=== PATIENT | female | born 1970 | race African-American/Black ===

== ENCOUNTER → 2017-11-23 | Outpatient (CLI) | payer OTHER | LOC: RAD 13:17 | DX: Z12.31 Encounter for screening mammogram for malignant neoplasm of breast (principal) ==

== ENCOUNTER → 2018-06-26 | Outpatient (CLI) | payer OTHER | LOC: CAT 12:13 | DX: Z13.6 Encounter for screening for cardiovascular disorders (principal); E78.00 Pure hypercholesterolemia, unspecified; I25.10 Atherosclerotic heart disease of native coronary artery without angina pectoris ==

== ENCOUNTER → 2018-12-11 | Outpatient (CLI) | payer OTHER | LOC: RAD 07:44 | DX: M54.5 Low back pain (principal) ==

== ENCOUNTER → 2018-12-20 | Outpatient (CLI) | payer OTHER | LOC: RAD 12:36 → MRI 12:36 | DX: Z12.31 Encounter for screening mammogram for malignant neoplasm of breast (principal); M47.26 Other spondylosis with radiculopathy, lumbar region; M51.16 Intervertebral disc disorders with radiculopathy, lumbar region; M41.86 Other forms of scoliosis, lumbar region; M51.37 Other intervertebral disc degeneration, lumbosacral region; M47.27 Other spondylosis with radiculopathy, lumbosacral region ==

== ENCOUNTER → 2019-01-14 | Outpatient (CLI) | payer OTHER ==
[~2019-01-14] MED LIST: GABAPENTIN 100100 MG PO; LEXAPRO 10 MG T10 M1 PO; TIZANIDINE4 MG/1 TA1 PO; TRAMADOL 50 MG50 MG PO
== END ==
LOC: CAT 10:36
DX: M47.26 Other spondylosis with radiculopathy, lumbar region (principal); M43.8X6 Other specified deforming dorsopathies, lumbar region; N28.1 Cyst of kidney, acquired

== ENCOUNTER 2019-02-04 12:40 | Emergency (ER) | payer OTHER ==
[~2019-02-04] VITALS: Ht 172.7 cm; Wt 131.5 kg
--- NOTE | ~2019-02-04 | EMS ---
[facility] [address] [place] [address] EMS Patient Care Report Name: CAITLYN DAVILA Room #: REG Val#: [id number] Admission: 02/04/19 Attend Phys: Discharge: Date of : 70 Report #: [id number] THIS REPORT FOR: //name// Report Transmitted: 02/04/2019 13:15 EMS Care Summary [facility] MED-ACT Incident [id number] @ 02/04/2019 12:14 Incident Location [address] [place] [address] Patient CAITLYN DAVILA Female, 48 Years 1970 Patient Address [address] [place] [id number] Patient History None Reported, Patient Allergies No known allergies, Chief Complaint I feel dizzy Disposition Transported No Lights/[place] Dis[place] Reason Unconscious/Fainting Transported To [facility] Narrative Patient reports she was at work when she began to c/o dizziness and her heart racing. Patient advised this started around 0900 hours. Patient called her doctor and left work to go to his office around 1200 hours. While driving, patient advised the dizziness was getting worse so she pulled over into a parking lot and called 911. [facility] [address] [place] [address] EMS Patient Care Report Name: CAITLYN DAVILA Room #: REG ABDOULAYE Neal#: [id number] Admission: 02/04/19 Attend Phys: Discharge: Date of : 70 Report #: [id number] On arrival found patient sitting in the drivers seat c/o dizziness and that her heart was racing. Patient walked to EMS unit without difficulty. Patient denied any chest pain, dyspnea, N/V, recent illness or injury. Initial Vitals @12:26P: 95,R: 20,BP: 174/98,SpO2: 99,OK Suspected: false @12:32P: 96,R: 20,BP: 165/71,SpO2: 94, @12:22P: 107,R: 20,BP: 170/110,Pain: 0/10,GCS: 15,SpO2: 93,Revised Trauma: 12, Assessments @12:22MENTAL:Person Oriented,Time Oriented,Place Oriented,Event Oriented,SKIN:HEENT:LUNG SOUNDS:General: No Abnormalities,ABDOMEN:General: No Abnormalities,PELVIS//GI:No Abnormalities,EXTREMITIES:Left Arm: No Abnormalities,Right Arm: No Abnormalities,Left Leg: No Abnormalities,Right Leg: No Abnormalities,PULSE:NEURO:No Abnormalities, Impression Dizziness Procedures @12:2612-Lead ECGResponse: UnchangedSucceeded Timeline 12:13,Call Received 12:13,Psap Call 12:14,Dispatched 12:15,En Route 12:20,On Scene 12:21,At Patient 12:22,BP: 170/110 M,PULSE: 107,RR: 20 R,SPO2: 93 Ox,ETCO2: ,BG: ,PAIN: 0,GCS: 15, 12:26,12-Lead ECG,Response: UnchangedSucceeded, 12:26,BP: 174/98 M,PULSE: 95,RR: 20 R,SPO2: 99 Ox,ETCO2: ,BG: ,PAIN: ,GCS: , 12:30,Depart Scene 12:32,BP: 165/71 M,PULSE: 96,RR: 20 R,SPO2: 94 Ox,ETCO2: ,BG: ,PAIN: ,GCS: , 12:38,At Destination 13:00,Call Closed Disclaimer v1.1 Copyright 2019 [employer] This EMS Care Summary contains data elements from the applicable legal record (which may be displayed differently). It is designed to provide pertinent information for the following purposes: continuity of care, clinical quality, and state data reporting. The complete legal record is available to ED staff and administrators of the receiving hospital in [employer]'s Patient Tracker. All data is provided "as is."
[2019-02-04 13:52] LABS: URINE BILIRUBIN NEGATIVE (Negative); URINE BLOOD NEGATIVE (Negative); URINE CLARITY CLEAR; URINE COLOR YELLOW; URINE GLUCOSE-RANDOM* NEGATIVE (Negative); URINE KETONES NEGATIVE (Negative); URINE LEUKOCYTES-REFLEX NEGATIVE (Negative); URINE NITRITE-REFLEX NEGATIVE (Negative); URINE PROTEIN (DIPSTICK) NEGATIVE (Negative); URINE SPECIFIC GRAVITY <= 1.005 (1.005-1.035); URINE UROBILINOGEN 0.2 E.U./dl (0.2-1.0)
[2019-02-04 13:52] LABS: ABSOLUTE NEUTROPHILS 6.5 thou/uL (1.4-8.2); BASOPHILS 0.6 % (0.0-2.0); EOSINOPHILS 1.4 % (0.0-3.0); HEMATOCRIT 40.1 % (37.0-47.0); HEMOGLOBIN 12.9 gm/dL (12.0-15.0); LYMPHOCYTES 19.3 % (24.0-44.0); MCH 31.2 pg (26.0-34.0); MCHC 32.3 g/dL (28.0-37.0); MCV 96.5 fL (80.0-100.0); MONOCYTES 5.1 % (1.0-8.0); PLATELET COUNT 276 thou/uL (150-400); POLYS 73.6 % (36.0-66.0); RBC 4.15 mil/uL (4.20-5.00); RDW 12.8 % (10.5-14.5); WBC 8.8 thou/uL (4.0-11.0)
[2019-02-04 13:57] LABS: ANION GAP 7 mmol/L (7-16); BUN 8 mg/dL (7-18); CALCIUM 9.5 mg/dL (8.5-10.1); CHLORIDE 102 mmol/L (98-107); CO2 29 mmol/L (21-32); CREATININE 0.7 mg/dL (0.6-1.0); GLUCOSE 99 mg/dL (74-106); POTASSIUM 3.6 mmol/L (3.5-5.1); SODIUM 138 mmol/L (136-145)
[2019-02-04 14:04] LABS: AMP/METHAMP Negative (Negative); BARBITURATES Negative (Negative); BENZODIAZEPINES Negative (Negative); COCAINE Negative (Negative); METHADONE Negative (Negative); OPIATES Negative (Negative); PCP Negative (Negative)
[2019-02-04 14:07] LABS: ALBUMIN 3.8 g/dL (3.4-5.0); SGOT 10 U/L (15-37); SGPT 13 U/L (30-65); TOTAL BILIRUBIN 0.8 mg/dL (<0.1-1.0); TOTAL PROTEIN 8.4 g/dL (6.4-8.2); TROPONIN-I <0.06 ng/mL (<0.06)
[2019-02-04 18:03] VITALS: BP 130/71
[2019-02-05] MEDS ORDERED: GABAPENTIN 100100 MG PO (11:01)
[2019-02-05] MEDS ORDERED: TRAMADOL 50 MG50 MG PO (11:01)
[2019-02-05] MEDS ORDERED: TIZANIDINE4 MG/1 TA1 PO (11:01)
--- NOTE | 2019-02-05 16:57 | EKG ---
[place] [address] [facility] [place] [place] [address] ELECTROCARDIOGRAM REPORT Name: DAVILACAITLYN [id number] Admission: 02/04/19 Attend Phys: Discharge: 02/04/19 Date of : [birth year] Report #: [id number] THIS REPORT FOR: //name// [facility] ED Test Date: 2019-02-04 Test Time: 12:56:31 Pat Name: CAITLYN DAVILA Department: Room: Gender: F [employer]: : 1970 Requested By: Alyssa Calvin Order Number: [id number] MD: Chad Sun Measurements Intervals [place] Rate: 83 P: 68 LA: 166 QRS: 16 QRSD: 90 T: -10 QT: 337 QTc: 396 Interpretive Statements Sinus rhythm Borderline T wave abnormalities No previous ECG available for comparison Electronically Signed On 02-05-2019 16:57:03 STOCK RAISER by Chad Sun [email or web address] <ELECTRONICALLY SIGNED> By: Chad Sun MD, [facility] 02/05/19 1657 1256 [id number] Chad Sun MD, FACC /EPI
[2019-02-19] MEDS ORDERED: LEXAPRO 10 MG T10 M1 PO (14:16)
== END 2019-02-04 18:04 | disposition home or self-care (01) ==
LOC: ER 12:40
PROVIDERS: Physician Assistant
DX: R42 Dizziness and giddiness (principal); R00.2 Palpitations

== ENCOUNTER → 2019-02-05 | Outpatient (CLI) | payer OTHER ==
[~2019-02-05] VITALS: Ht 172.7 cm; Wt 138.7 kg
[2019-02-05 11:08] VITALS: BP 127/87
--- NOTE | 2019-02-05 11:32 | NUR ---
Pain Clinic Assessment: 1. History of Osteoarthritis: Left Lower Extremity Right Lower Extremity History of Rheumatoid Arthritis: Not Applicable 2. Height: 5 ft. 8 in. 172.7 cm. Weight: 305.8 lb. oz. 138.710 kg. Patient's BMI: 46.5 3. Vital Signs: BP: 127/87 Pulse: 85 Resp: 16 Temp: 02 Sat: 100 ECG Mon: 4. Pain Intensity: 5 5. Fall Risk: Dizziness: Y Needs help standing or walking: N Fallen in the last 3 months: N Fall risk comments: 6. Patient on Blood Thinner: None 7. History of Hypertension: N 8. Opioid Therapy greater than 6 weeks: N Opiate Contract Signed: 9. Risk Assessment Tool Provided: 10. Functional Assessment Tool: 11. Recreational Drug Use: Never Drug Type: Tobacco Use: Never Smoker Tobacco Type: Amount or Packs/day: How Many Years: Alcohol Use: Yes Frequency: Weekly Quant: 1-2
--- NOTE | 2019-02-05 12:10 | NUR ---
02/05/19 NEW CONSULT COMING FOR BACK PAIN. SHE REPORTS THAT SHE LOST HER SPOUSE 7 MONTHS AGO. SHE IS RAISING A 10 YEAR OLD SON. PAIN STARTED SHORTLY AFTER SHE LOST HER SPOUSE.
--- NOTE | 2019-02-12 13:04 | HPC ---
[facility] [address] [place] [address] PAIN MANAGEMENT CONSULTATION Name: CAITLYN DAVILA Room #: REG JAYCEE M.R.#: [id number] Admission: 02/05/19 Attend Phys: Titi Cabrera DO Discharge: Date of : 70 Report #: [id number] THIS REPORT FOR: //name// CC: Titi Black DATE OF SERVICE: 02/05/2019 CHIEF COMPLAINT: Low back pain, intermittent right lower extremity pain. HISTORY OF PRESENT ILLNESS: As you know, the patient is a 48-year-old female who reports acute onset of low back pain and intermittent right lower extremity pain that began November 2018. The patient denies any injury or trauma that may have led to symptom development. She indicates that she has "just been putting up with it." She sought evaluation through her primary care team who ultimately sent the patient for MRI of the lumbar spine, which showed concerning findings that might equate to a pars interarticularis fracture at L5. She underwent CT imaging 01/14/2019 which shows no pars defect, only mild degenerative changes of the lumbar region. Due to lack of improvement with conservative treatment, the patient was referred to our clinic to discuss the options for treatment for low back pain. The patient indicates today pain is continuous. She describes the pain as burning, shooting, cramping, aching, throbbing, pounding, sharp and tender. Places current pain score 5/10, daily average at 7/10, worst pain has been is 10+/10. The patient states that standing, bending and sitting exacerbate symptoms. Muscle relaxants tend to improve pain. The patient has been referred to our service to discuss treatment options for suspected lumbar radiculopathy. PAST MEDICAL HISTORY: 1. Morbid obesity. 2. Mild osteoarthritis. PAST SURGICAL HISTORY: ACL repair 2007. SOCIAL HISTORY: The patient denies tobacco, IV or illicit drug use. Admits occasional alcohol beverage. 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 She is working, not receiving workmen's compensation or is trying to obtain disability benefits. She is unaccompanied today. REVIEW OF SYSTEMS: Positive for wearing corrective eyewear, hearing loss with tinnitus, palpitations, shortness of breath walking or lying flat, asthma, wheezing, nocturia, lightheadedness and dizziness, numbness and tingling sensations involving the right lower extremity and buttock area. Depression, insomnia. All other review of systems negative per 12-point review of systems [facility] [address] [place] [address] PAIN MANAGEMENT CONSULTATION Name: CAITLYN DAVILA Room #: REG [facility]#: [id number] Admission: 02/05/19 Attend Phys: Titi Cabrera DO Discharge: Date of : 70 Report #: [id number] other than those listed in history of present illness. Pain impact score 45/70 indicating moderate interference of daily activities secondary to pain. ALLERGIES: No known drug allergies. CURRENT MEDICATIONS: Tizanidine 4 mg 3 times a day p.r.n., tramadol 50 mg q. 4 hours p.r.n., gabapentin 100 mg 3 times a day. IMAGING: MRI lumbar spine shows lumbar degenerative changes, specifically in the pars region of the L5-S1 level. There is only mild lumbar degenerative changes from L1 through L5-S1. A CT of the lumbar spine obtained 01/14/2019 shows no pars defect at the L5-S1 level, mild leftward curvature of the lumbar spine with apex at L2. Has mild degenerative changes at L3-L4 and L4-L5. PHYSICAL EXAMINATION: VITAL SIGNS: Blood pressure 127/87, pulse 85, respiratory rate 16 and unlabored. The patient is 100% on room air. Height 5 feet 8 inches tall, weight 305.8 pounds, BMI calculated 46.5. GENERAL: Well-developed, well-nourished, well-hydrated, class 3, morbidly obese 48-year-old female appearing stated age, pain is rated around 5/10. HEENT: Normocephalic, atraumatic. Pupils equal, round, reactive to light. Extraocular muscles are intact. Sclerae nonicteric without injection. NEUROLOGIC: Cranial nerves 2-12 grossly intact. Speech is fluent. The patient deemed a good historian. LUNGS: Clear. No wheezes, rhonchi or rales. CARDIOVASCULAR: Regular. No appreciable gallop or rub. ABDOMEN: Soft. Severely obese, normoactive bowel sounds. EXTREMITIES: Show no clubbing, no cyanosis, no edema. MUSCULOSKELETAL: Lower extremity strength equal and symmetrical 5/5, intact to light touch from L1 through S2 dermatomes. Seated straight leg raising negative. Supine straight leg raising negative. Maria E's test is negative. Modified Gaenslen's positive for axial low back pain. Ankle clonus negative. Babinski is negative. Muscle bulk and tone is equal and symmetrical in comparing left lower extremity to right. Gait mildly antalgic favoring right lower extremity over left. ASSESSMENT: 1. Lumbar radiculopathy. 2. Lumbosacral spondylosis with radiculopathy. 3. Displacement of lumbar intervertebral disk with radiculopathy. 4. Mild degenerative changes of lumbar spine. [facility] [address] [place] [address] PAIN MANAGEMENT CONSULTATION Name: CAITLYN DAVILA Room #: REG JAYCEE [facility]#: [id number] Admission: 02/05/19 Attend Phys: Titi Cabrera DO Discharge: Date of : 70 Report #: [id number] PLAN: 1. The patient has been referred to our service to discuss treatment options for suspected lumbar radiculopathy. Findings on her MRI showed possible pars interarticularis fracture at L5. I am pleased to advise the patient this is not the case. The findings of the CT indicate no problems in that area. We discussed with the patient treatment options for the symptoms that she is experiencing, running from the low back and down the right leg in a classic radicular fashion. We discussed the following treatment options with the patient today to address lumbar radiculopathy secondary to the irritated nerve root affecting the L5 nerve on the right. We discussed physical therapy, stretching exercise, core strengthening and a concerted effort at weight loss. We discussed medication management utilizing neuropathic pain medications and the possible use of a Medrol Dosepak. We discussed lumbar epidural injection for which the patient was referred to our clinic and we also discussed surgical options, though the patient is not a candidate as she does not have significant pathology. After reviewing risks and benefits of all proposed treatment options, the patient chose to move forward with a lumbar epidural injection. 2. The patient was advised that due to third green party payer restrictions, authorization has to be obtained before the patient could undergo an epidural injection. This authorization could take anywhere from 4-7 working days. We will begin this process immediately and contact the patient once it has been completed. 3. We will see the patient back in followup visit once we have received authorization to undergo a lumbar epidural injection under fluoroscopic guidance to address her L5 right-sided radiculopathy. We have yet to make the patient an appointment as we have not received this authorization. Once it has been completed, we will make an appointment back. 4. We wish to thank the referring team for the opportunity to see this patient in consultation. We will keep you apprised of response to treatment as we address suspected lumbar radiculopathy involving the L5 nerve root on the right. Again, we wish to thank you for the opportunity to see the patient in consultation. <ELECTRONICALLY SIGNED> By: Titi Cabrera DO 02/12/19 1304 1258 [id number] Titi Cabrera DO /nt
== END ==
LOC: PAIN 06:46
DX: M47.27 Other spondylosis with radiculopathy, lumbosacral region (principal); M51.16 Intervertebral disc disorders with radiculopathy, lumbar region; E66.09 Other obesity due to excess calories; M19.90 Unspecified osteoarthritis, unspecified site

== ENCOUNTER → 2019-02-19 | Outpatient (CLI) | payer OTHER ==
[~2019-02-19] VITALS: Ht 172.7 cm; Wt 79.4 kg
[2019-02-19 14:10] VITALS: BP 132/79
--- NOTE | 2019-02-19 14:23 | NUR ---
Pain Clinic Assessment: 1. History of Osteoarthritis: knees History of Rheumatoid Arthritis: Not Applicable 2. Height: 5 ft. 8 in. 172.7 cm. Weight: 175.0 lb. oz. 79.380 kg. Patient's BMI: 26.6 3. Vital Signs: BP: 132/79 Pulse: 78 Resp: 16 Temp: 02 Sat: 98 ECG Mon: 4. Pain Intensity: 5 5. Fall Risk: Dizziness: N Needs help standing or walking: N Fallen in the last 3 months: N Fall risk comments: 6. Patient on Blood Thinner: None 7. History of Hypertension: N 8. Opioid Therapy greater than 6 weeks: N Opiate Contract Signed: 9. Risk Assessment Tool Provided: low-o 10. Functional Assessment Tool: 41/ 11. Recreational Drug Use: Never Drug Type: Tobacco Use: Never Smoker Tobacco Type: Amount or Packs/day: How Many Years: Alcohol Use: Yes Frequency: Quant:
== END | disposition home or self-care (01) ==
LOC: PAIN 07:00
DX: M54.16 Radiculopathy, lumbar region (principal); G89.29 Other chronic pain; Z98.890 Other specified postprocedural states; Z79.899 Other long term (current) drug therapy

== ENCOUNTER → 2019-03-21 | Outpatient (CLI) | payer OTHER ==
--- NOTE | 2019-03-21 11:31 | 2DMMODE ---
[facility] [place] [address] 2 D/M-MODE ECHOCARDIOGRAM Name: CAITLYN DAVILA Room #: REG [facility]#: [id number] Admission: 03/21/19 Attend Phys: Derek Hutchins MD Discharge: Date of : 70 Report #: [id number] THIS REPORT FOR: //name// APPROVED REPORT Study performed: 03/21/2019 09:24:46 EXAM: Comprehensive 2D, Doppler, and color-flow Echocardiogram Patient Location: Out-Patient Room #: Echo lab 2 Status: routine BSA: 2.36 HR: 71 bpm BP: 136/82 mmHg Rhythm: NSR Other Information Study Quality: Good Indications Palpitations 2D Dimensions RVDd: 30.52 mm IVSd: 9.76 (7-11mm) LVOT Diam: 21.32 (18-24mm) LVDd: 47.08 mm PWd: 9.75 (7-11mm) Ascending Ao: 27.72 (22-36mm) LVDs: 32.95 (25-40mm) Aortic Root: 29.01 mm IVC: 17.00 mm Volumes Left Atrial Volume (Systole) Single Plane 4CH: 60.66 mL Single Plane 2CH: 46.63 mL LA ESV Index: 25.00 mL/m2 Aortic Valve AoV Peak Pedro.: 1.32 m/s AO Peak Gr.: 6.93 mmHg LVOT Max P.17 mmHg LVOT Max V: 1.02 m/s TAPAN Vmax: 2.77 cm2 Mitral Valve E/A Ratio: 1.3 MV Decel. Time: 173.57 ms MV E Max Pedro.: 0.84 m/s [facility] [address] [place] [address] 2 D/M-MODE ECHOCARDIOGRAM Name: CAITLYN DAVILA Room #: REG [facility]#: [id number] Admission: 03/21/19 Attend Phys: Derek Hutchins MD Discharge: Date of : 70 Report #: [id number] MV A Pedro.: 0.64 m/s MV PHT: 50.34 ms IVRT: 87.66 ms Pulmonary Valve PV Peak Pedro.: 0.94 m/s PV Peak Gr.: 3.54 mmHg Pulmonary Vein P Vein S: 0.53 m/s P Vein A: 0.20 m/s P Vein D: 0.31 m/s P Vein A Dur.: 92.3 msec P Vein S/D Ratio: 1.71 Left Ventricle The left ventricle is normal size. There is normal LV segmental wall motion. There is normal left ventricular wall thickness. Left ventricular systolic function is normal. The left ventricular ejection fraction is within the normal range. LVEF is 55-60%. The left ventricular diastolic function is normal. Right Ventricle The right ventricle is normal size. The right ventricular systolic function is normal. Atria The left atrium size is normal. The right atrium size is normal. Aortic Valve The aortic valve is normal in structure. No aortic regurgitation is present. There is no aortic valvular stenosis. Mitral Valve The mitral valve is normal in structure. There is no mitral valve regurgitation noted. No evidence of mitral valve stenosis. Tricuspid Valve The tricuspid valve is normal in structure. There is no tricuspid valve regurgitation noted. Pulmonic Valve The pulmonary valve is normal in structure. There is no pulmonic valvular regurgitation. Great Vessels The aortic root is normal in size. IVC is normal in size and collapses >50% with inspiration. [facility] [address] [place] [address] 2 D/M-MODE ECHOCARDIOGRAM Name: CAITLYN DAVILA Room #: REG [facility].#: [id number] Admission: 03/21/19 Attend Phys: Derek Hutchins MD Discharge: Date of : 70 Report #: [id number] Pericardium There is no pericardial effusion. <Conclusion> The left ventricle is normal size. There is normal left ventricular wall thickness. Left ventricular systolic function is normal. The left ventricular diastolic function is normal. The right ventricle is normal size. The left atrium size is normal. The aortic valve is normal in structure. There is no mitral valve regurgitation noted. There is no tricuspid valve regurgitation noted. <ELECTRONICALLY SIGNED> By: Derek Hutchins MD 03/21/19 0373 29 29 Derek Hutchins MD /INF
== END ==
LOC: CV 09:07
DX: R00.2 Palpitations (principal)

== ENCOUNTER → 2019-06-21 | Outpatient (CLI) | payer OTHER ==
[~2019-06-21] MED LIST changes: +MIRENA1 EACH IMPLANT
[2019-06-21 09:57] VITALS: BP 133/73
[2019-06-21 10:23] LABS: HEMATOCRIT 38.1 % (37.0-47.0); HEMOGLOBIN 12.6 gm/dL (12.0-15.0); MCH 31.9 pg (26.0-34.0); MCHC 33.1 g/dL (28.0-37.0); MCV 96.3 fL (80.0-100.0); RBC 3.95 mil/uL (4.20-5.00); RDW 12.8 % (10.5-14.5); WBC 9.2 thou/uL (4.0-11.0)
[2019-06-21 10:37] LABS: CALCIUM 9.2 mg/dL (8.5-10.1); CREATININE 0.7 mg/dL (0.6-1.0); POTASSIUM 3.9 mmol/L (3.5-5.1)
--- NOTE | 2019-06-21 16:23 | EKG ---
[facility] [place] [address] [place] [address] ELECTROCARDIOGRAM REPORT Name: CAITLYN DAVILA Room #: REG [facility].#: [id number] Admission: 06/21/19 Attend Phys: Henrry Aguila Discharge: Date of : 70 Report #: [id number] THIS REPORT FOR: cc: Titi Machado James A. DO Park, Jin S. MD ~ THIS REPORT FOR: //name// [facility] Test Date: 2019-06-21 Test Time: 10:09:23 Pat Name: CAITLYN DAVILA Department: Room: Gender: Help Desk Representative: Jessica CORONEL : 1970 Requested By: Henrry Aguila Order Number: [id number] MD: Derek Hutchins Measurements Intervals [place] Rate: 86 P: 65 ND: 176 QRS: -3 QRSD: 86 T: -1 QT: 342 QTc: 409 Interpretive Statements Sinus rhythm Poor R-wave progression Compared to ECG 02/04/2019 12:56:31 T-wave abnormality no longer present Electronically Signed On 06-21-2019 16:21:47 CDT by Derek Hutchins [email or web address] <ELECTRONICALLY SIGNED> By: Derek Hutchins MD 06/21/19 1621 1009 1009 Derek Hutchins MD /EPI
--- NOTE | 2019-06-21 17:47 | CATHLAB ---
[facility] [address] [place] [address] INVASIVE PROCEDURE REPORT Name: CAITLYN DAVILA Room #: REG JAYCEE [facility].#: [id number] Admission: 06/21/19 Attend Phys: Henrry Aguila Discharge: Date of : 70 Report #: [id number] THIS REPORT FOR: cc: Titi Machado James A. DO Lammoglia, Francisco J. MD ~ APPROVED REPORT Study performed: 06/21/2019 10:45:23 Patient Details Patient Status: Out-Patient Room #: The patient is a 49 year-old female Event Personnel Henrry Aguila Plant Ecologist, Mary Felton RN RN, Mckayla Najera RTR, Selene Chou Ja'net RTR Monitor Procedures Performed Art Access - R femoral artery* Left Heart Cath w/or w/o Coronaries [id number] [facility] [address] Initial Mod Sed Same Phys/QHP Gr 182706 98825 Mod Sed Same Phys/QHP Ea [id number] Hemostasis with Manual pressure, supervision of conscious sedation Indication Palpitations, Positive stress test, Chest pain Procedure Narrative The Right Groin^ was infiltrated with 1% Lidocaine subcutaneous anesthesia. A PINNACLE 4FR Sheath #[id number] sheath was inserted into the RFA^. Coronary angiography was performed using coronary diagnostic catheters. The right coronary system was accessed and visualized with a JR4 catheter. The left coronary system was accessed and visualized with a JL4 catheter. The left ventricle was accessed and visualized with a angled pigtail catheter. Left ventricular/Aortic Valve gradient assessed via catheter pullback. Hemostasis was obtained with manual pressure following sheath removal without any complications. The patient tolerated the procedure well and there were no complications associated with the procedure. There was no hematoma. Intraoperative Conscious Sedation Sedation start time: 11:06 Case end Time: [facility] [place] [address] INVASIVE PROCEDURE REPORT Name: CAITLYN DAVILA Room #: REG JHON Neal#: [id number] Admission: 06/21/19 Attend Phys: Henrry Conde Discharge: Date of : 70 Report #: [id number] 11:43 Versed 3 mg Fluoro Time: 545.00 minutes Dose: DAP 4562.50 cGycm2 545 mGy Contrast Type and Amount: Omnipaque 50 ml Coronary Angiography The patient's coronary anatomy is right dominant. Diagnostic Cath Left Main Normal origin and caliber short in length or nonexistent with a common orifice but bifurcates that into the descending left circumflex. History of high-grade disease. LAD Moderate caliber type III vessel which courses in the anterior interventricular sulcus giving rise to septal and diagonal branches in its course. No significant high-grade lesions are noted. The vessel continues on cocaine the apex and terminating the posterior aspect of left ventricle without significant stenotic lesions Diagonal 1 Small to moderate caliber vessel coursing along the anterolateral wall without significant lesions present no irregularities are noted intraluminally Circumflex Moderate caliber vessel which is short in length gives rise to marginal branch early on and continues on giving rise to posterior and lateral wall marginal branches. It is free of significant stenotic lesions. OM1 Large-caliber vessel coursing on the lateral aspect of the left ventricle. Is feeling significantly is not lesion. No luminal irregularities or flow-limiting lesions are noted. OM2 Small-caliber vessel without high-grade lesions present OM3 Small-caliber vessel without high-grade lesions present Right Coronary Moderate to large caliber vessel normal origin coursing in the AV groove posteriorly. There is no high-grade lesions noted. The crux of the heart and gives her to posterior descending artery and terminates as a posterior wall branches without significant stenotic lesion R PDA Moderate caliber vessel coursing the posterior into ventricular sulcus towards the apex without significant stenotic lesions noted RPLV Moderate caliber vessel without significant stenosis noted Left Ventriculography Left Ventriculography was not performed. [address] [address] INVASIVE PROCEDURE REPORT Name: CAITLYN DAVILA Room #: REG [facility]#: [id number] Admission: 06/21/19 Attend Phys: Henrry Conde Discharge: Date of : 70 Report #: [id number] Hemodynamics The aortic pressure is 124/80 mmHg with a mean of 102 mmHg. The left ventricular pressure is 129/13 mmHg with a mean of mmHg. The left ventricular end diastolic pressure is 30 mmHg. Conclusion 1. Normal coronary arteries 2. Normal hemodynamics Recommendations Cardiac Risk Reduction Program <ELECTRONICALLY SIGNED> By: Henrry Aguila MD 06/21/191745 45 45 Henrry Aguila MD /INF
--- NOTE | 2019-06-26 10:21 | H ---
[facility] [place] [address] HISTORY AND PHYSICAL Name: CAITLYN DAVILA Room #: REG JAYCEE Acosta.#: [id number] Admission: 06/21/19 Attend Phys: Henrry Aguila Discharge: Date of : 70 Report #: [id number] THIS REPORT FOR: cc: Titi Machado,Henrry Obrien MD ~ CC: Henrry Machado HISTOR+Y OF PRESENT ILLNESS: This is a very pleasant 49-year-old female patient who was seen in the office for symptomatology of tachycardia, palpitations and chest discomfort. Perfusion scan demonstrated an intermediate risk study suggestive of a region of inducible ischemia. The patient now presents for assessment and evaluation. PHYSICAL EXAMINATION: GENERAL: Well-developed, well-nourished female, resting comfortably, in no distress. HEENT: Normocephalic, atraumatic. Pupils are equal, round, reactive to light and accommodation. Extraocular muscles are intact. Sclerae and conjunctivae are anicteric. NECK: JVD is normal. Carotid upstrokes are bilaterally symmetrical. No bruits are heard. No thyromegaly. No lymphadenopathy. LUNGS: Clear to auscultation. No wheezes, rhonchi or crackles. No CVA tenderness. CARDIAC: Demonstrates a regular rhythm. Normal first and second heart sounds. No ventricular or atrial gallops, no rubs noted. No murmurs. No lifts or heaves, PMI normal. ABDOMEN: Soft, nontender, nondistended. Normal bowel sounds. EXTREMITIES: Without cyanosis, clubbing or edema. Distal pulses are intact. DTR symmetrical. NEUROLOGIC: Cranial nerves 2-12 are grossly normal and symmetrical. PSYCHIATRIC: Alert, oriented with normal affect. SKIN: Warm and dry. IMPRESSION: Chest pains, palpitations with abnormal perfusion scan. Cardiac catheterization was recommended. Risks, complications and alternatives have been discussed with the patient. She voices understanding and wishes to proceed. <ELECTRONICALLY SIGNED> By: Henrry Aguila MD 06/26/19 1021 [id number] Henrry Aguila MD /nt
== END ==
LOC: CATH 05-08 07:24
PROVIDERS: Internal Medicine
DX: R00.2 Palpitations (principal); R07.9 Chest pain, unspecified

== ENCOUNTER → 2019-10-08 | Outpatient (CLI) | payer OTHER ==
[~2019-10-08] VITALS: Ht 172.7 cm; Wt 144.0 kg
[2019-10-08 08:04] VITALS: BP 145/86
--- NOTE | 2019-10-08 08:10 | NUR ---
Pain Clinic Assessment: 1. History of Osteoarthritis: knees BACK History of Rheumatoid Arthritis: Not Applicable 2. Height: 5 ft. 8 in. 172.7 cm. Weight: 317.4 lb. oz. 143.972 kg. Patient's BMI: 48.3 3. Vital Signs: BP: 145/86 Pulse: 83 Resp: 18 Temp: 02 Sat: 97 ECG Mon: 4. Pain Intensity: 0 5. Fall Risk: Dizziness: N Needs help standing or walking: N Fallen in the last 3 months: N Fall risk comments: 6. Patient on Blood Thinner: None 7. History of Hypertension: N 8. Opioid Therapy greater than 6 weeks: N Opiate Contract Signed: 9. Risk Assessment Tool Provided: low-o 10. Functional Assessment Tool: 41 11. Recreational Drug Use: Never Drug Type: Tobacco Use: Never Smoker Tobacco Type: Amount or Packs/day: How Many Years: Alcohol Use: Yes Frequency: Monthly Quant: 4
--- NOTE | 2019-10-08 12:18 | HPC ---
[address] [address] PAIN MANAGEMENT CONSULTATION Name: CAITLYN DAVILA Room #: REG JAYCEE Krala.#: [id number] Admission: 10/08/19 Attend Phys: Titi Cabrera DO Discharge: Date of : 70 Report #: [id number] THIS REPORT FOR: cc: Titi Machado James A. DO Johnson, James E. DO ~ DATE OF SERVICE: 10/08/2019 REFERRING PHYSICIAN: Titi Machado DO CHIEF COMPLAINT: Low back pain, intermittent right lower extremity pain with paresthesias. HISTORY OF PRESENT ILLNESS: As you know, the patient is a very pleasant 49-year-old severely morbidly obese female with longstanding history of lumbar radiculopathy. The patient underwent lumbar epidural injection under fluoroscopic guidance 02/12/2019 reporting greater than 50% improvement in overall pain. She was able to return to the majority of activities of daily living without significant pain interference. Unfortunately, her symptoms have begun to return. She denies injury or trauma that has led to recurrence of pain. She places pain today anywhere from 0/10 to 4/10 depending on activity. She describes the pain is exacerbated with standing and bending, improves with medications, repositioning, cold compresses and previous epidural injection. She returns today in followup visit requesting to undergo the next in the series of epidural injections under fluoroscopic guidance to address recurrent lumbar radiculopathy. ALLERGIES: No known drug allergies. CURRENT MEDICATIONS: 1. Mirena implant. 2. Lexapro 10 mg once a day. SOCIAL HISTORY: The patient denies tobacco, IV or illicit drug use. Admits occasional alcohol beverage. She is employed, working, not receiving workmen compensation. Unaccompanied at today's visit. IMAGING: No new imaging available. PHYSICAL EXAMINATION: VITAL SIGNS: Blood pressure 145/86, pulse 83, respiratory rate 18 and unlabored. The patient is 97% on room air. Height 5 feet 8 inches tall, weight 317.4 pounds, BMI calculated 48.3. GENERAL: Well-developed, well-nourished, well-hydrated, severely morbidly obese 49-year-old female, appearing stated age, pain is rated today 0/10 to 4/[address] [address] PAIN MANAGEMENT CONSULTATION Name: CAITLYN DAVILA Room #: REG [facility]#: [id number] Admission: 10/08/19 Attend Phys: Titi Cabrera DO Discharge: Date of : 70 Report #: [id number] depending on activity. HEENT: Normocephalic, atraumatic. Pupils equal, round and reactive. Speech fluent. EXTREMITIES: Show no clubbing, no cyanosis, and no edema. MUSCULOSKELETAL: Lower extremity strength remains symmetrical 5/5. Muscle bulk and tone equal and symmetrical in comparing left lower extremity to right. Seated straight leg raising negative. Supine straight leg raising negative. Maria E test is negative. Modified Gaenslen positive for some axial low back pain without radiation of symptoms. Ankle clonus negative. Babinski is negative. Gait appears mildly antalgic favoring right lower extremity over left. ASSESSMENT: 1. Symptomatic lumbar radiculopathy. 2. Lumbosacral spondylosis with radiculopathy. 3. Displacement of lumbar intervertebral disk with radiculopathy. 4. Mild degeneration of lumbar spine. 5. Chronic intractable pain. PLAN: 1. The patient returns today in followup visit requesting to undergo next in the series of epidural injections under fluoroscopic guidance to address recurrent lumbar radicular pain. The patient reports greater than 50% improvement in overall pain with the previous epidural injection. She states that with that injection she was able to go about her activities of daily living for many months before her symptoms have begun to return. She indicates instantaneous return of symptoms beginning about 2-3 weeks ago and progressively worsening. She denies injury or trauma that led to this reoccurrence. She returns today requesting to begin the process of preauthorization to undergo next in the series of epidural injections. The patient was advised that due to third constitution party payer restrictions, authorization would have to be obtained before the patient could undergo a lumbar epidural injection. Authorization could take anywhere from 4-7 working days. We will begin this process immediately. If we are able to obtain this authorization quickly, we will have the patient return to undergo the next in the series of epidural injections. We have made the patient a tentative appointment for next Monday for the injection to be performed. If we receive the authorization earlier, we will have her return to undergo the procedure more rapidly. 2. No medication changes made at today's visit. The patient will continue current medical therapy as previously prescribed. 3. We will see the patient back in followup visit for next in the series of lumbar epidural injections. We are pleased to see the patient has done well [facility] [address] [place] [address] PAIN MANAGEMENT CONSULTATION Name: CAITLYN DAVILA [facility] [id number] Admission: 10/08/19 Attend Phys: Titi Cabrera DO Discharge: Date of : 70 Report #: [id number] with previous injections and hopeful to see improvement with the second in the series. <ELECTRONICALLY SIGNED> By: Titi Cabrera DO 10/08/19 1218 0828 [id number] Titi Cabrera DO /nt
== END ==
LOC: PAIN 09-25 09:33
PROVIDERS: ATTEND Anesthesiology Pain Medicine
DX: M47.26 Other spondylosis with radiculopathy, lumbar region (principal); M79.604 Pain in right leg; R20.2 Paresthesia of skin; G89.29 Other chronic pain; M51.16 Intervertebral disc disorders with radiculopathy, lumbar region; Z79.899 Other long term (current) drug therapy

== ENCOUNTER → 2019-10-16 | Outpatient (CLI) | payer OTHER ==
[~2019-10-16] VITALS: Ht 172.7 cm; Wt 143.9 kg
--- NOTE | ~2019-10-16 | HPC ---
[facility] [address] [place] [address] PAIN MANAGEMENT CONSULTATION Name: CAITLYN DAVILA Room #: REG JAYCEE .Marizol.#: [id number] Admission: 10/16/19 Attend Phys: Titi Cabrera DO Discharge: Date of : 70 Report #: [id number] THIS REPORT FOR: cc: Titi Machado,Titi Wing DO ~ CC: Titi Black DATE OF SERVICE: 10/16/2019 REFERRING PHYSICIAN: Titi Machado DO CHIEF COMPLAINT: Low back pain, right lower extremity pain with paresthesias. HISTORY OF PRESENT ILLNESS: As you know, the patient is a very pleasant 49-year-old severely morbidly obese female with longstanding history of lumbar radiculopathy. She has undergone lumbar epidural injections with good efficacy. The most recent epidural injection provided to the patient gave excellent improvement in overall symptoms. Unfortunately, her symptoms have begun to return. She is now indicating pain, it is spasming and tender in sensation. She places pain intensity at 9/10. Pain is exacerbated with standing, bending, improves with repositioning, medications, cold compresses and previous epidural injections. She returns today in followup visit, denying any new injury or trauma requesting next in the series of epidural injections. ALLERGIES: No known drug allergies. CURRENT MEDICATIONS: Mirena implant, Lexapro 10 mg once a day. SOCIAL HISTORY: The patient denies tobacco, IV or illicit drug use. Admits occasional alcohol beverage. She is working, not receiving workmen's compensation, unaccompanied today. IMAGING: No new imaging available. PHYSICAL EXAMINATION: VITAL SIGNS: Blood pressure 131/85, pulse 80, respiratory rate 14 and unlabored. The patient is 98% on room air. Height 5 feet 8 inches tall, weight 317.2 pounds, BMI calculated 48.2. GENERAL: Well-developed, well-nourished, well-hydrated, class 3, severely morbidly obese female appearing stated age, pain is rated today at 9/10. HEENT: Normocephalic, atraumatic. Pupils equal, round and reactive. EXTREMITIES: Show no clubbing, no cyanosis, no edema. MUSCULOSKELETAL: Muscle bulk and tone remains symmetrical in lower extremities. [address] [address] PAIN MANAGEMENT CONSULTATION Name: CAITLYN DAVILA Room #: REG [facility].#: [id number] Admission: 10/16/19 Attend Phys: Titi Cabrera DO Discharge: Date of : 70 Report #: [id number] Seated straight leg raising negative. Supine straight leg raising is negative. Maria E's test is negative. Modified Gaenslen's positive for axial low back pain. Gait is antalgic favoring right lower extremity over left. Sensation is intact to light touch from L1 through S2 dermatomes. ASSESSMENT: 1. Symptomatic lumbar radiculopathy. 2. Lumbosacral spondylosis with radiculopathy. 3. Displacement of lumbar intervertebral disk with radiculopathy. 4. Mild degeneration of lumbar spine. 5. Chronic intractable pain. PLAN: 1. The patient returns today in followup visit to undergo next in the series of lumbar epidural injections to address recurrent pain that she is now placing 12/11. We have received authorization for the patient to undergo the procedure today. She has been advised of the risks and the benefits of a lumbar epidural injection. These risks include but are not necessarily limited to bleeding, bruising, infection, worsening pain, no relief of pain, also risk of temporary or permanent muscle weakness, temporary or permanent nerve damage, possible paralysis and . The patient states understood and wished to proceed. 2. No medication changes made at today's visit. The patient will continue current medical therapy as previously prescribed. 3. We will see the patient back in followup visit on an as needed basis for possible next in the series of epidural injections. We are hopeful the patient will see good and prolonged benefit with today's procedure. DESCRIPTION OF PROCEDURE: L5-S1 right parasagittal epidural steroid injection under fluoroscopic guidance. After obtaining written consent, the patient was taken back to fluoroscopy suite, placed in prone position with pillow under abdomen to decrease lumbar lordosis. Skin overlying lumbosacral area then prepped and draped in aseptic fashion. The L5-S1 vertebral interspace was identified by AP fluoroscopy. Skin and subcutaneous tissue overlying target site injection anesthetized with 3 mL of 1% lidocaine. A 20-gauge 4-1/2 inch Tuohy needle advanced under fluoroscopic guidance towards the epidural space using a right para sagittal approach. Epidural space identified using loss of resistance to air technique. After negative aspiration for heme or cerebrospinal fluid, 1 mL of Omnipaque injected. Lumbar epidurogram confirmed using both AP and lateral fluoroscopy. After negative aspiration for heme or cerebrospinal fluid, 5 mL of a solution containing 2 mL 40 mg per mL, 80 mg total triamcinolone along with 3 mL of lidocaine 1% injected slowly. Needle retracted long-term, flushed with 1 mL of 1% lidocaine and then removed. Sterile bandage placed over injection site. No new motor deficits present in lower [facility] [address] [place] [address] PAIN MANAGEMENT CONSULTATION Name: CAITLYN DAVILA Room #: REG [facility]#: [id number] Admission: 10/16/19 Attend Phys: Titi Cabrera DO Discharge: Date of : 70 Report #: [id number] extremity following procedure. The patient tolerated the procedure well, carefully escorted to recovery room in stable condition. No apparent complications. After meeting discharge criteria, the patient discharged home. By: 0928 [id number] Titi Cabrera DO /nt
[2019-10-16 14:13] VITALS: BP 131/85
--- NOTE | 2019-10-16 14:16 | NUR ---
Pain Clinic Assessment: 1. History of Osteoarthritis: knees BACK History of Rheumatoid Arthritis: Not Applicable 2. Height: 5 ft. 8 in. 172.7 cm. Weight: 317.2 lb. oz. 143.881 kg. Patient's BMI: 48.2 3. Vital Signs: BP: 131/85 Pulse: 80 Resp: 14 Temp: 02 Sat: 98 ECG Mon: 4. Pain Intensity: 9 5. Fall Risk: Dizziness: N Needs help standing or walking: N Fallen in the last 3 months: N Fall risk comments: 6. Patient on Blood Thinner: None 7. History of Hypertension: N 8. Opioid Therapy greater than 6 weeks: N Opiate Contract Signed: 9. Risk Assessment Tool Provided: low-o 10. Functional Assessment Tool: 11. Recreational Drug Use: Never Drug Type: Tobacco Use: Never Smoker Tobacco Type: Amount or Packs/day: How Many Years: Alcohol Use: Yes Frequency: Monthly Quant: 4
== END | disposition home or self-care (01) ==
LOC: PAIN 07:05
PROVIDERS: ATTEND Anesthesiology Pain Medicine
DX: M51.16 Intervertebral disc disorders with radiculopathy, lumbar region (principal); M47.27 Other spondylosis with radiculopathy, lumbosacral region; G89.29 Other chronic pain; E66.01 Morbid (severe) obesity due to excess calories; Z98.890 Other specified postprocedural states; Z79.899 Other long term (current) drug therapy; Z68.42 Body mass index [BMI] 45.0-49.9, adult

== ENCOUNTER → 2020-06-17 | Outpatient (CLI) | payer OTHER ==
[~2020-06-17] VITALS: Ht 172.7 cm; Wt 143.1 kg
[~2020-06-17] MED LIST changes: +CLARITIN10 MG PO; +TYLENOL EXTRA500 MG PO
[2020-06-17 09:11] VITALS: BP 131/84
--- NOTE | 2020-06-17 09:33 | NUR ---
Pain Clinic Assessment: 1. History of Osteoarthritis: knees BACK History of Rheumatoid Arthritis: Not Applicable 2. Height: 5 ft. 8 in. 172.7 cm. Weight: 315.4 lb. oz. 143.065 kg. Patient's BMI: 48.0 3. Vital Signs: BP: 131/84 Pulse: 92 Resp: 16 Temp: 02 Sat: 100 ECG Mon: 4. Pain Intensity: 0 TO 10 5. Fall Risk: Dizziness: N Needs help standing or walking: N Fallen in the last 3 months: N Fall risk comments: 6. Patient on Blood Thinner: None 7. History of Hypertension: N 8. Opioid Therapy greater than 6 weeks: N Opiate Contract Signed: 9. Risk Assessment Tool Provided: low-o 10. Functional Assessment Tool: 11. Recreational Drug Use: Never Drug Type: Tobacco Use: Never Smoker Tobacco Type: Amount or Packs/day: How Many Years: Alcohol Use: Yes Frequency: Special Occasions Quant: 1
--- NOTE | 2020-06-18 08:06 | HPC ---
[address] [address] PAIN MANAGEMENT CONSULTATION Name: CAITLYN DAVILA Room #: REG JAYCEE Val#: [id number] Admission: 06/17/20 Attend Phys: Titi Cabrera DO Discharge: Date of : 70 Report #: [id number] THIS REPORT FOR: cc: Titi Machado James A. DO Johnson, James E. DO ~ DATE OF SERVICE: 06/17/2020 CHIEF COMPLAINT: Low back pain, right lower extremity pain with paresthesias. HISTORY OF PRESENT ILLNESS: As you know, the patient is a very pleasant 50-year-old female with longstanding history of lumbar radiculopathy. She has undergone lumbar epidural injections under fluoroscopic guidance with good efficacy. The most recent epidural injection provided at our last visit gave 85% improvement in overall pain lasting for greater than 5 months. The patient continues to participate in a home exercise routine and stretching exercises. She takes Tylenol for pain control, but the conservative treatment to address recurrent pain has been unsuccessful. She returns today in followup visit to begin the process of planning the next in the series of epidural injections. The patient does report that she has appointment with Dr. Garcia with Orthopedics to discuss carpal tunnel release on the right planned for the very near future. She does not have a date specifically for surgery planned, but has a vacation coming up that she was going to utilize to recover from the surgery. She returns today to begin the process of scheduling the next in the series of lumbar epidural injections. She has not received COVID-19 injections in the past 2 weeks and is now planning to undergo COVID-19 injections until she has completed epidural injection and surgery on her right hand. ALLERGIES: No known drug allergies. CURRENT MEDICATIONS: Mirena, acetaminophen 500 mg dose b.i.d. p.r.n. pain, loratadine 10 mg per day. SOCIAL HISTORY: The patient denies tobacco, IV or illicit drug use. Admits occasional alcohol beverage. She is working, not receiving workmen's compensation, unaccompanied today. IMAGING: No new imaging is available. PHYSICAL EXAMINATION: VITAL SIGNS: Blood pressure 131/84, pulse 92, respiratory rate 16 and unlabored. The patient is 100% on room air. Height 5 feet 8 inches tall, weight 315.4 pounds, BMI calculated 48.0. GENERAL: Well-developed, well-nourished, well-hydrated, class III, severely morbidly obese 50-year-old female appearing stated age, pain is rated anywhere from 0-10/10 depending on activity. [address] [address] PAIN MANAGEMENT CONSULTATION Name: CAITLYN DAVILA Marizol Room #: REG [facility] M.Marizol.#: [id number] Admission: 06/17/20 Attend Phys: Titi Cabrera DO Discharge: Date of : 70 Report #: [id number] HEENT: Normocephalic, atraumatic. Pupils are round, and responsive. The patient is wearing a mask in compliance with COVID-19 regulations. EXTREMITIES: Show no clubbing, no cyanosis. No appreciable edema. MUSCULOSKELETAL: Seated straight leg raising negative. Supine straight leg raising is remaining negative, though this is limited by body habitus. Maria E's test is negative. Modified Gaenslen's positive for axial low back pain. Gait is antalgic favoring right lower extremity over left. Sensation appears to be intact to light touch from L1 through S2 dermatomes. Muscle bulk and tone equal and symmetrical in lower extremities. ASSESSMENT: 1. Symptomatic lumbar radiculopathy. 2. Displacement of lumbar intervertebral disk with radiculopathy. 3. Lumbosacral spondylosis with radiculopathy. 4. Mild degeneration of the lumbar spine. 5. Chronic intractable pain. PLAN: 1. The patient returns today in followup visit to discuss the possibility of undergoing next in the series of lumbar epidural injections under fluoroscopic guidance. Patient reports good efficacy with previous injection reporting 85% improvement in overall pain lasting for nearly 5 months. Unfortunately, her symptoms have begun to return without inciting injury or trauma. The patient has trialed [id number]-[id number] medications in the form of Tylenol and has continued to do home exercise and stretching program, but has not noted much in the way of improvement in symptoms. She returns today in followup visit to begin scheduling the next in the series of epidural injections. The patient reports that she is following up with Dr. Garcia on Monday to discuss the possibility of undergoing a right carpal tunnel release. The patient and I did discuss that Orthopedics typically does not want to have steroid exposures a couple of weeks before and a couple of weeks after any surgery, specifically to the hand. She will discuss this with her surgeon at their appointment on Monday and advise as to whether or not that is remaining the case. We will plan the following. We discussed the possibility of undergoing a lumbar epidural injection next Monday at 3:30 in the afternoon. The patient wishes to work part day before coming in on Monday to undergo the procedure. She will then go home after the procedure and recover from the procedure, allowing the medication to stay in the area we placed for at least 12 hours and return to work on Monday. This is the most convenient timing for the patient. She does need to clear with her surgeon that steroid exposures can be done prior to surgery and if so that may delay either our injection or other surgery. She will contact our clinic once she has had the discussion with her orthopedic surgeon. 2. No medication changes made at today's visit. The patient will continue current medical therapy as prior prescribed. [address] [address] PAIN MANAGEMENT CONSULTATION Name: GIOVANNICAITLYN R Room #: REG JAYCEE Neal#: [id number] Admission: 06/17/20 Attend Phys: Titi Cabrera DO Discharge: Date of : 70 Report #: [id number] 3. We will see the patient back in followup visit to undergo a L5-S1 right parasagittal epidural injection as performed at our previous evaluation of 10/16/2019 in hopes of improving pain. She has done very well with these injections. We recommend undergoing the next in the series once it has been approved. <ELECTRONICALLY SIGNED> By: Titi Cabrera DO 06/18/20 0806 1029 1318 Titi Cabrera DO /nt
== END ==
LOC: PAIN 06:37
PROVIDERS: ATTEND Anesthesiology Pain Medicine
DX: G89.4 Chronic pain syndrome (principal); M51.16 Intervertebral disc disorders with radiculopathy, lumbar region; M47.26 Other spondylosis with radiculopathy, lumbar region; M79.661 Pain in right lower leg; R20.2 Paresthesia of skin; Z79.899 Other long term (current) drug therapy; Z79.891 Long term (current) use of opiate analgesic

== ENCOUNTER → 2020-10-15 | Outpatient (CLI) | payer OTHER | LOC: ULTRA 08:22 | PROVIDERS: ATTEND Nurse Practitioner | DX: M71.21 Synovial cyst of popliteal space [Baker], right knee (principal) ==

== ENCOUNTER → 2020-12-04 | Outpatient (CLI) | payer OTHER | LOC: BC 10:50 | PROVIDERS: ATTEND Nurse Practitioner | DX: Z12.31 Encounter for screening mammogram for malignant neoplasm of breast (principal) ==